=== PATIENT | female | born 1955 | race African-American/Black ===

== ENCOUNTER 2017-01-14 18:51 | Emergency (ER) | payer OTHER ==
--- NOTE | ~2017-01-14 | CR141 ---
[facility] A Service of [facility] & [facility] RADIOLOGY TEXT RESULTS PATIENT: LE CHEEK LOCATION: [facility] : 59 UNIT #: [id number] AGE: [address]: Rainer Nieto SEX: F ORDER DR: [id number] [facility] [address] [place], [place] [address] [id number] MR#: [id number] Acc #: [id number] NAME: LE CHEEK : 1955 SEX: F STUDY DATE/TIME: 01/14/2017 18:51 UNIT: [id number] ROOM: STUDY DESCRIPTION: CR Hand Min 3 Views Lt Attending Physician: Rainer Nieto P.A.-C. Ordering Physician: Asiya Cook A.P.R.N. Primary Care Physician: Lizzette Cintron MEDICAL IMAGING REPORT This report is preliminary unless electronic signature is present EXAM Left hand, 3 views HISTORY Hand pain and swelling after fall today. FINDINGS Three views left hand demonstrate a 4 mm curvilinear calcification along the posterior margin of the proximal carpal row on the lateral view with overlying soft tissue swelling over the dorsum of the wrist, concerning for a triquetral fracture displaced approximately 4 mm. Remainder of the hand is unremarkable. No joint space narrowing or dislocation. Dictated by... Fabian Whitley M.D. THIS IS AN ELECTRONICALLY VERIFIED REPORT Fabian Whitley M.D. at 01/15/2017 5:14 PM CHERY/antoinette TD: 01/15/2017 01:01 JOB #: [id number] MEDICAL IMAGING REPORT Page 1 of 1 COPY
[~2017-01-14 18:51] MED LIST: BAYER CHEWABLE81 MG PO; CETIRIZINE HCL10 MG PO; CIPROFLOXACIN500 M1 PO; ENALAPRIL MALEA20 MG PO; GLUCOPHAGE500 MG PO; JANUVIA100 MG PO; LANTUS100 U/ML; LIPITOR20 MG PO; METFORMIN HCL1000 M1 PO; NITROFURANTOIN100 M3 PO; OMEPRAZOLE20 M2 PO; VASOTEC20 MG PO
== END 2017-01-14 20:11 | disposition home or self-care (01) ==
LOC: CED 18:51
DX: S62.112B Displaced fracture of triquetrum [cuneiform] bone, left wrist, initial encounter for open fracture (principal); W01.0XXA Fall on same level from slipping, tripping and stumbling without subsequent striking against object, initial encounter; Y93.89 Activity, other specified; Y92.69 Other specified industrial and construction area as the place of occurrence of the external cause; Y99.0 Civilian activity done for income or pay
CPT/HCPCS: 29125; 73130; 99283

== ENCOUNTER → 2017-02-28 | Outpatient (CLI) | payer OTHER ==
--- NOTE | ~2017-02-28 | CR230 ---
[facility] A Service of [facility] & [facility] RADIOLOGY TEXT RESULTS PATIENT: LE CHEEK LOCATION: [facility] : 59 UNIT #: [id number] AGE: [address]: Margy Sorto SEX: F ORDER DR: [id number] [facility] [address] [place], [place] [address] [id number] O MR#: [id number] Acc #: [id number] NAME: LE CHEEK : 1955 SEX: F STUDY DATE/TIME: 02/28/2017 6:08 UNIT: [facility] ROOM: STUDY DESCRIPTION: CR Shoulder Min 2 View Rt Attending Physician: Margy Redd A.P.R.N. Referring Physician: Margy Redd A.P.R.N. Ordering Physician: Margy Redd A.P.R.N. Primary Care Physician: Lizzette Cintron A.P.R.N. MEDICAL IMAGING REPORT This report is preliminary unless electronic signature is present EXAM 3 views, right shoulder, 02/28/2017. HISTORY 61-year-old female with complaints of right shoulder pain for 1 month, worsening. No known injury. COMPARISON None. FINDINGS No fracture. No dislocation. Tiny well corticated calcification is seen adjacent to the greater tuberosity of the humerus and may represent changes of chronic calcific tendinosis. There is very mild spurring of the acromioclavicular joint. No acromioclavicular or coracoclavicular separation. No osteolytic or osteoblastic abnormality. Imaged right ribs appear intact. Imaged right lung appears clear. IMPRESSION 1. Mild degenerative spurring of the right acromioclavicular joint. 2. Features of suspected mild calcific tendinosis adjacent to greater tuberosity of the humerus. 3. No acute findings. Dictated by... Lilliam Hay M.D. THIS IS AN ELECTRONICALLY VERIFIED REPORT Lilliam Hay M.D. at 03/01/2017 8:32 AM FRANCISCO J/leyda TD: 02/28/2017 13:05 [facility] A Service of [facility] RADIOLOGY TEXT RESULTS PATIENT: LE CHEEK LOCATION: [facility] : 59 UNIT #: [id number] AGE: [address]: Margy Sorto SEX: F ORDER DR: PIEDDA #: [id number] MEDICAL IMAGING REPORT Page 1 of 1 COPY
== END | disposition home or self-care (01) ==
LOC: CRAD 05:52
DX: M25.511 Pain in right shoulder (principal); M19.011 Primary osteoarthritis, right shoulder
CPT/HCPCS: 73030